=== PATIENT | male | born 1995 | race Caucasian/White ===

== ENCOUNTER 2019-03-10 14:01 | Emergency (ER) | payer OTHER ==
[~2019-03-10] VITALS: Ht 172.7 cm; Wt 68.0 kg
[2019-03-10 14:01] VITALS: BP_SYST 113
[2019-03-10] MEDS ORDERED: LORazepam 1 MG TABLET PO ONE (14:30)
[2019-03-10 16:04] VITALS: BP_SYST 113
== END 2019-03-10 16:04 | disposition home or self-care (01) ==
LOC: SED 14:01
DX: R06.4 Hyperventilation (principal); F41.9 Anxiety disorder, unspecified
CPT/HCPCS: 99283